=== PATIENT | female | born 1985 | race Hispanic/Latino ===

== ENCOUNTER 2021-07-30 03:16 | Emergency (ER) | payer SELFPAY ==
[2021-07-30] MEDS ORDERED: ZIPRASIDONE MESYLATE 20 MG VIAL IM ONE (03:41)
--- NOTE | 2021-07-30 03:41 | Emergency Department Report ---
ED Psych HPI - General Chief Complaint: Psych Stated Complaint: HEARING VOICES/MH EVAL Time Seen by Provider: 07/30/21 03:31 Source: patient, family Mode of arrival: Ambulatory - History of Present Illness Initial Comments: Patient is 35 years old female, unknown past psychiatric history. Patient brought to the emergency room by caregiver for mental health evaluation. Patient found to be in acute psychosis. Patient with auditory hallucination and speaking to herself in a very loud tone. She stated that the voices telling her that something bad is going to happen to her. She stated that she sees him sometimes. She denied any suicidal homicidal ideation. MD Complaint: altered mental status Associated Psychiatric Symptoms: racing thoughts, auditory hallucinations, visual hallucinations - Related Data Home Medications Medication Instructions Recorded Confirmed Last Taken Trileptal 150 mg PO BID 07/30/21 07/30/21 Unknown Zyprexa 10 mg PO DAILY 07/30/21 07/30/21 Unknown Allergies Allergy/AdvReac Type Severity Reaction Status Date / Time No Known Allergies Allergy Verified 07/30/21 03:24 ED Review of Systems ROS: Stated complaint: HEARING VOICES/MH EVAL Other details as noted in HPI Comment: All other systems reviewed and negative Constitutional: denies: chills, fever Respiratory: denies: cough, shortness of breath, SOB with exertion Cardiovascular: denies: chest pain, palpitations Gastrointestinal: denies: abdominal pain, nausea, vomiting Neurological: denies: headache, weakness, numbness, paresthesias, confusion, abnormal gait Psychiatric: auditory hallucinations, visual hallucinations. denies: homicidal thoughts, suicidal thoughts ED Past Medical Hx - Past Medical History Previous Medical History?: Yes Hx Psychiatric Treatment: Yes - Surgical History Past Surgical History?: No - Medications Home Medications: Home Medications Medication Instructions Recorded Confirmed Last Taken Type Trileptal 150 mg PO BID 07/30/21 07/30/21 Unknown History Zyprexa 10 mg PO DAILY 07/30/21 07/30/21 Unknown History ED Physical Exam - General Limitations: Altered Mental Status General appearance: alert, anxious, other (Agitated, manic) - Head Head exam: Present: atraumatic, normocephalic, normal inspection - Eye Eye exam: Present: normal appearance - ENT ENT exam: Present: normal exam, normal orophraynx, mucous membranes moist - Neck Neck exam: Present: normal inspection, full ROM. Absent: tenderness, meningismus - Respiratory Respiratory exam: Present: normal lung sounds bilaterally - Cardiovascular Cardiovascular Exam: Present: regular rate, normal rhythm, normal heart sounds - GI/Abdominal GI/Abdominal exam: Present: soft, normal bowel sounds. Absent: distended, tenderness, guarding, rebound, rigid, mass, bruit, pulsatile mass, hernia - Extremities Exam Extremities exam: Present: normal inspection, full ROM, normal capillary refill. Absent: tenderness - Back Exam Back exam: Present: normal inspection, full ROM. Absent: CVA tenderness (R), CVA tenderness (L) - Neurological Exam Neurological exam: Present: alert, oriented X3, CN II-XII intact - Psychiatric Psychiatric exam: Present: agitated, manic. Absent: homicidal ideation, suicidal ideation - Skin Skin exam: Present: warm, intact, normal color ED Course Vital Signs 07/30/21 07/30/21 07/30/21 03:24 03:31 11:10 Temperature 99.3 F 98.6 F Pulse Rate 99 H 84 Respiratory 18 17 Rate Blood Pressure 141/79 136/88 [Right] O2 Sat by Pulse 98 100 98 Oximetry 07/30/21 07/31/21 07/31/21 20:05 01:55 08:46 Temperature 98.7 F 99.2 F 97.2 F L Pulse Rate 85 84 92 H Respiratory 18 18 18 Rate Blood Pressure 134/83 129/83 100/61 [Right] O2 Sat by Pulse 98 98 97 Oximetry ED Medical Decision Making - Lab Data Result diagrams: 07/30/21 14:24 07/30/21 14:24 Critical care attestation.: If time is entered above; I have spent that time in minutes in the direct care of this critically ill patient, excluding procedure time. ED Disposition Clinical Impression: Acute psychosis Disposition: [address] [place] [address] Is pt being admited?: No Condition: Stable Referrals: CATALINA CARVER MD [Primary Care Provider] - 3-5 Days
[2021-07-30 04:23] LABS: Basophils % (Auto) 0.1 % (0.0-1.8); Hematocrit 38.9 % (30.3-42.9); Hemoglobin 12.9 gm/dl (10.1-14.3); Lymphocytes # (Auto) 1.8 K/mm3 (1.2-5.4); Mean Corpuscular HGB Conc 33 % (30-34); Mean Corpuscular Volume 88 fl (79-97); Monocytes # (Auto) 0.7 K/mm3 (0.0-0.8); Monocytes % (Auto) 6.2 % (0.0-7.3); Platelet Count 274 K/mm3 (140-440); Red Blood Count 4.41 M/mm3 (3.65-5.03); Red Cell Distribution Width 13.2 % (13.2-15.2)
[2021-07-30 04:39] LABS: Blood Urea Nitrogen 5 mg/dL (7-17); Calcium 9.4 mg/dL (8.4-10.2); Hemolysis Index 13
[2021-07-30 04:43] LABS: Alanine Aminotransferase 20 units/L (7-56); Albumin 4.4 g/dL (3.9-5)
[2021-07-30 04:50] LABS: BUN/Creatinine Ratio 8; Bilirubin,Direct < 0.2 mg/dL (0-0.2)
[2021-07-30] MEDS ORDERED: POTASSIUM CHLORIDE ER 20 MEQ TAB PO ONE (07:36)
--- NOTE | 2021-07-30 10:58 | Consultation ---
History of Present Illness - Reason for Consult Consult date: 07/30/21 Reason for consult: psychosis - History of Present Psychiatric Illness The patient was seen today. She was brought by her caregiver for hallucinations. During the evaluation, the patient appears very anxious. She is bouncing and her face looks tense. She is responding to internal stimuli. She says she came to the hospital for "talking to myself and feeling nervous." She says "I'm better now." When asking the patient if she was still hearing voices, she says "yes, they are telling me something's bad is going to happen." She denies SI/HI. She denies illicit drug use, alcohol or nicotine. The patient says she takes Trileptal and has been off. She did not remember dose or what diagnoses she was given. PAST PSYCHIATRIC HISTORY Diagnoses: unsure of dx Suicide attempts or Self-harm behavior: yes Prior psychiatric hospitalizations: yes Substance Abuse history: Denies Previous psychiatric medications tried: Trileptal Outpatient treatment: Denies PAST MEDICAL HISTORY: None reported Family Psychiatric History: None reported or documented SOCIAL HISTORY Marital Status: Living Arrangements: Sober living Employment Status: Employed Access to guns/weapons: None reported Education: History of Abuse: None reported Legal History: Yes imprisonment REVIEW OF SYSTEMS Constitutional: Negative for weight loss ENT: Negative for stridor Respiratory: Negative for cough or hemoptysis All other systems reviewed and are negative MENTAL STATUS EXAMINATION General Appearance and Behavior: Age appropriate, good hygiene, wearing appropriate clothes, bouncing, appears anxious Cooperation: Participating/engaged Psychomotor Behavior: unremarkable and within normal limits Mood: better Affect and affective range: congruent with mood Thought Process: circumstantial Thought Content: Hallucinations Speech: Normal volume, Regular rate and rhythm. Intellectual Functioning: Average Suicidal Ideation: Denies Homicidal Ideation: Denies Hallucinations: auditory Delusions: None elicited Impulse Control: Limited Insight and Judgment: limited insight and poor judgment Memory: limited Attention: Normal Orientation: Alert, oriented. Assessment and Plan (1) Bipolar Disorder RECOMMENDATIONS 1013 Risperidone 0.5mg po BID Trileptal 150mg po BID Vistaril 50mg po BID Risks, benefits and alternatives of medications discussed with the patient, questions answered and consent obtained from patient. PSYCHOTHERAPY: Supportive psychotherapy provided MEDICAL: Per primary team DELIRIUM PRECAUTIONS: Please re-orient patient frequently, keep lights on during the day, and minimize benzodiazepines and opiates as these medications could worsen patient's confusion. [employer]N PRESS OPERATOR: per primary DISPOSITION: recommend acute inpatient psychiatric hospitalization at this time. FOLLOW-UP: Will follow Thank you for the consult. Please contact with any questions and/or concerns. Case staffed with Dr. Luis Medications and Allergies Allergies Allergy/AdvReac Type Severity Reaction Status Date / Time No Known Allergies Allergy Verified 07/30/21 03:24 Mental Status Exam - Vital signs Last Vital Signs Temp 99.3 F 07/30/21 03:24 Pulse 99 H 07/30/21 03:24 Resp 18 07/30/21 03:24 BP 141/79 07/30/21 03:24 Pulse Ox 100 07/30/21 03:31 Results Result Diagrams: 07/30/21 03:53 07/30/21 03:53 Abnormal lab results 07/30/21 07/30/21 07/30/21 Range/Units 03:53 03:53 03:53 WBC 11.4 H (4.5-11.0) K/mm3 Seg Neutrophils % 77.7 H (40.0-70.0) % Seg Neutrophils # 8.9 H (1.8-7.7) K/mm3 Potassium 3.4 L (3.6-5.0) mmol/L Carbon Dioxide 20 L (22-30) mmol/L BUN 5 L (7-17) mg/dL Glucose 118 H (65-100) mg/dL Salicylates < 0.3 L (2.8-20.0) mg/dL Acetaminophen (10.0-30.0) ug/mL 07/30/21 Range/Units 03:53 WBC (4.5-11.0) K/mm3 Seg Neutrophils % (40.0-70.0) % Seg Neutrophils # (1.8-7.7) K/mm3 Potassium (3.6-5.0) mmol/L Carbon Dioxide (22-30) mmol/L BUN (7-17) mg/dL Glucose (65-100) mg/dL Salicylates (2.8-20.0) mg/dL Acetaminophen 5.0 L (10.0-30.0) ug/mL All other labs normal.
[2021-07-30] MEDS ORDERED: OXcarbazepine 300 MG TAB PO SCH (11:00)
[2021-07-30] MEDS: risperiDONE 0.25 MG TAB PO SCH (11:17)
[2021-07-30 11:18] LABS: Bacteria,Urine 1+ /HPF (Negative); Bilirubin,Urine NEG (Negative); Blood,Urine NEG (Negative); Color,Urine Yellow (Yellow); Mucus,Urine 1+ /HPF; Protein,Urine <15 mg/dL mg/dL (Negative); RBC,Urine < 1.0 /HPF (0.0-6.0); Urobilinogen,Urine < 2.0 mg/dL (<2.0)
[2021-07-30 11:38] LABS: Amphetamine Screen,Urine Negative; Benzodiazepines Screen,Urine Negative; Cannabinoid Screen,Urine Negative; Cocaine Screen,Urine Negative; Methadone Screen,Urine Negative; Opiate Screen,Urine Negative
--- NOTE | 2021-07-30 11:41 | Event Note ---
Date: 07/30/21 The patient was evaluated in the emergency department for symptoms described in the history of present illness. He/she was evaluated in the context of the global COVID-19 pandemic, which necessitated consideration that the patient might be at risk for infection with the virus that causes COVID-19. Institutional protocols and algorithms that pertain to the evaluation of patients at risk for COVID-19 are in a state of rapid change based on information released by regulatory bodies including the CDC and federal and state organizations. These policies and algorithms were followed during the patient's care in the emergency department. Please note that these policies, procedures and recommendations changed on a rapid basis. Laboratory studies, vital signs, nursing documentation, ER documentation, and psychiatric documentation are reviewed and appreciated. Nursing team endorses that the patient is psychotic, and anxious. The psychiatric team have recommended a 1013 for disorganization and acute psychosis. I concur with the recommendation. The patient is awake and ate breakfast and went to the bathroom this morning The patient was deemed medically suitable for psychiatric disposition and placement during her initial ER evaluation. The patient continues to remain medically suitable for psychiatric placement and disposition. She is currently pending psychiatric placement. Have ordered and filled out/signed 1013. Vital Signs 07/30/21 07/30/21 07/30/21 03:24 03:31 11:10 Temperature 99.3 F 98.6 F Pulse Rate 99 H 84 Respiratory 18 17 Rate Blood Pressure 141/79 136/88 [Right] O2 Sat by Pulse 98 100 98 Oximetry Lab Results 07/30/21 07/30/21 07/30/21 Range/Units 03:31 03:31 03:53 WBC 11.4 H (4.5-11.0) K/mm3 RBC 4.41 (3.65-5.03) M/mm3 Hgb 12.9 (10.1-14.3) gm/dl Hct 38.9 (30.3-42.9) % MCV 88 (79-97) fl MCH 29 (28-32) pg MCHC 33 (30-34) % RDW 13.2 (13.2-15.2) % Plt Count 274 (140-440) K/mm3 Lymph % (Auto) 16.0 (13.4-35.0) % [place] % (Auto) 6.2 (0.0-7.3) % Eos % (Auto) 0.0 (0.0-4.3) % Baso % (Auto) 0.1 (0.0-1.8) % Lymph # (Auto) 1.8 (1.2-5.4) K/mm3 [place] # (Auto) 0.7 (0.0-0.8) K/mm3 Eos # (Auto) 0.0 (0.0-0.4) K/mm3 Baso # (Auto) 0.0 (0.0-0.1) K/mm3 Seg Neutrophils % 77.7 H (40.0-70.0) % Seg Neutrophils # 8.9 H (1.8-7.7) K/mm3 Sodium (137-145) mmol/L Potassium (3.6-5.0) mmol/L Chloride (98-107) mmol/L Carbon Dioxide (22-30) mmol/L Anion Gap mmol/L BUN (7-17) mg/dL Creatinine (0.6-1.2) mg/dL Estimated GFR ml/min BUN/Creatinine Ratio % Glucose (65-100) mg/dL Calcium (8.4-10.2) mg/dL Total Bilirubin (0.1-1.2) mg/dL Direct Bilirubin (0-0.2) mg/dL Indirect Bilirubin mg/dL AST (5-40) units/L ALT (7-56) units/L Alkaline Phosphatase (35-129) units/L Total Protein (6.3-8.2) g/dL Albumin (3.9-5) g/dL Albumin/Globulin Ratio % HCG, Qual (Negative) Urine Color Yellow (Yellow) Urine Turbidity Clear (Clear) Urine pH 5.0 (5.0-7.0) Ur Specific [place] 1.019 (1.003-1.030) Urine Protein <15 mg/dl (Negative) mg/dL Urine Glucose (UA) Neg (Negative) mg/dL Urine Ketones 80 (Negative) mg/dL Urine Blood Neg (Negative) Urine Nitrite Neg (Negative) Urine Bilirubin Neg (Negative) Urine Urobilinogen < 2.0 (<2.0) mg/dL Ur Leukocyte Esterase Neg (Negative) Urine WBC (Auto) 2.0 (0.0-6.0) /HPF Urine RBC (Auto) < 1.0 (0.0-6.0) /HPF U Epithel Cells (Auto) 1.0 (0-13.0) /HPF Urine Bacteria (Auto) 1+ (Negative) /HPF Urine Mucus 1+ /HPF Salicylates (2.8-20.0) mg/dL Urine Opiates Screen Negative Urine Methadone Screen Negative Acetaminophen (10.0-30.0) ug/mL Ur Barbiturates Screen Negative Ur Phencyclidine Scrn Negative Ur Amphetamines Screen Negative U Benzodiazepines Scrn Negative Urine Cocaine Screen Negative U Marijuana (THC) Screen Negative Plasma/Serum Alcohol (0-0.07) % SARS-CoV-2 (PCR) (Negative) 07/30/21 07/30/21 07/30/21 Range/Units 03:53 03:53 03:53 WBC (4.5-11.0) K/mm3 RBC (3.65-5.03) M/mm3 Hgb (10.1-14.3) gm/dl Hct (30.3-42.9) % MCV (79-97) fl MCH (28-32) pg MCHC (30-34) % RDW (13.2-15.2) % Plt Count (140-440) K/mm3 Lymph % (Auto) (13.4-35.0) % [place] % (Auto) (0.0-7.3) % Eos % (Auto) (0.0-4.3) % Baso % (Auto) (0.0-1.8) % Lymph # (Auto) (1.2-5.4) K/mm3 [place] # (Auto) (0.0-0.8) K/mm3 Eos # (Auto) (0.0-0.4) K/mm3 Baso # (Auto) (0.0-0.1) K/mm3 Seg Neutrophils % (40.0-70.0) % Seg Neutrophils # (1.8-7.7) K/mm3 Sodium 142 (137-145) mmol/L Potassium 3.4 L (3.6-5.0) mmol/L Chloride 106.1 (98-107) mmol/L Carbon Dioxide 20 L (22-30) mmol/L Anion Gap 19 mmol/L BUN 5 L (7-17) mg/dL Creatinine 0.6 (0.6-1.2) mg/dL Estimated GFR > 60 ml/min BUN/Creatinine Ratio 8 % Glucose 118 H (65-100) mg/dL Calcium 9.4 (8.4-10.2) mg/dL Total Bilirubin (0.1-1.2) mg/dL Direct Bilirubin (0-0.2) mg/dL Indirect Bilirubin mg/dL AST (5-40) units/L ALT (7-56) units/L Alkaline Phosphatase (35-129) units/L Total Protein (6.3-8.2) g/dL Albumin (3.9-5) g/dL Albumin/Globulin Ratio % HCG, Qual (Negative) Urine Color (Yellow) Urine Turbidity (Clear) Urine pH (5.0-7.0) Ur Specific [place] (1.003-1.030) Urine Protein (Negative) mg/dL Urine Glucose (UA) (Negative) mg/dL Urine Ketones (Negative) mg/dL Urine Blood (Negative) Urine Nitrite (Negative) Urine Bilirubin (Negative) Urine Urobilinogen (<2.0) mg/dL Ur Leukocyte Esterase (Negative) Urine WBC (Auto) (0.0-6.0) /HPF Urine RBC (Auto) (0.0-6.0) /HPF U Epithel Cells (Auto) (0-13.0) /HPF Urine Bacteria (Auto) (Negative) /HPF Urine Mucus /HPF Salicylates < 0.3 L (2.8-20.0) mg/dL Urine Opiates Screen Urine Methadone Screen Acetaminophen 5.0 L (10.0-30.0) ug/mL Ur Barbiturates Screen Ur Phencyclidine Scrn Ur Amphetamines Screen U Benzodiazepines Scrn Urine Cocaine Screen U Marijuana (THC) Screen Plasma/Serum Alcohol (0-0.07) % SARS-CoV-2 (PCR) (Negative) 07/30/21 07/30/21 07/30/21 Range/Units 03:53 03:53 03:53 WBC (4.5-11.0) K/mm3 RBC (3.65-5.03) M/mm3 Hgb (10.1-14.3) gm/dl Hct (30.3-42.9) % MCV (79-97) fl MCH (28-32) pg MCHC (30-34) % RDW (13.2-15.2) % Plt Count (140-440) K/mm3 Lymph % (Auto) (13.4-35.0) % [place] % (Auto) (0.0-7.3) % Eos % (Auto) (0.0-4.3) % Baso % (Auto) (0.0-1.8) % Lymph # (Auto) (1.2-5.4) K/mm3 [place] # (Auto) (0.0-0.8) K/mm3 Eos # (Auto) (0.0-0.4) K/mm3 Baso # (Auto) (0.0-0.1) K/mm3 Seg Neutrophils % (40.0-70.0) % Seg Neutrophils # (1.8-7.7) K/mm3 Sodium (137-145) mmol/L Potassium (3.6-5.0) mmol/L Chloride (98-107) mmol/L Carbon Dioxide (22-30) mmol/L Anion Gap mmol/L BUN (7-17) mg/dL Creatinine (0.6-1.2) mg/dL Estimated GFR ml/min BUN/Creatinine Ratio % Glucose (65-100) mg/dL Calcium (8.4-10.2) mg/dL Total Bilirubin 0.40 (0.1-1.2) mg/dL Direct Bilirubin < 0.2 (0-0.2) mg/dL Indirect Bilirubin 0.2 mg/dL AST 13 (5-40) units/L ALT 20 (7-56) units/L Alkaline Phosphatase 86 (35-129) units/L Total Protein 7.0 (6.3-8.2) g/dL Albumin 4.4 (3.9-5) g/dL Albumin/Globulin Ratio 1.7 % HCG, Qual Negative (Negative) Urine Color (Yellow) Urine Turbidity (Clear) Urine pH (5.0-7.0) Ur Specific [place] (1.003-1.030) Urine Protein (Negative) mg/dL Urine Glucose (UA) (Negative) mg/dL Urine Ketones (Negative) mg/dL Urine Blood (Negative) Urine Nitrite (Negative) Urine Bilirubin (Negative) Urine Urobilinogen (<2.0) mg/dL Ur Leukocyte Esterase (Negative) Urine WBC (Auto) (0.0-6.0) /HPF Urine RBC (Auto) (0.0-6.0) /HPF U Epithel Cells (Auto) (0-13.0) /HPF Urine Bacteria (Auto) (Negative) /HPF Urine Mucus /HPF Salicylates (2.8-20.0) mg/dL Urine Opiates Screen Urine Methadone Screen Acetaminophen (10.0-30.0) ug/mL Ur Barbiturates Screen Ur Phencyclidine Scrn Ur Amphetamines Screen U Benzodiazepines Scrn Urine Cocaine Screen U Marijuana (THC) Screen Plasma/Serum Alcohol < 0.01 (0-0.07) % SARS-CoV-2 (PCR) (Negative) 07/30/21 Range/Units 09:20 WBC (4.5-11.0) K/mm3 RBC (3.65-5.03) M/mm3 Hgb (10.1-14.3) gm/dl Hct (30.3-42.9) % MCV (79-97) fl MCH (28-32) pg MCHC (30-34) % RDW (13.2-15.2) % Plt Count (140-440) K/mm3 Lymph % (Auto) (13.4-35.0) % [place] % (Auto) (0.0-7.3) % Eos % (Auto) (0.0-4.3) % Baso % (Auto) (0.0-1.8) % Lymph # (Auto) (1.2-5.4) K/mm3 [place] # (Auto) (0.0-0.8) K/mm3 Eos # (Auto) (0.0-0.4) K/mm3 Baso # (Auto) (0.0-0.1) K/mm3 Seg Neutrophils % (40.0-70.0) % Seg Neutrophils # (1.8-7.7) K/mm3 Sodium (137-145) mmol/L Potassium (3.6-5.0) mmol/L Chloride (98-107) mmol/L Carbon Dioxide (22-30) mmol/L Anion Gap mmol/L BUN (7-17) mg/dL Creatinine (0.6-1.2) mg/dL Estimated GFR ml/min BUN/Creatinine Ratio % Glucose (65-100) mg/dL Calcium (8.4-10.2) mg/dL Total Bilirubin (0.1-1.2) mg/dL Direct Bilirubin (0-0.2) mg/dL Indirect Bilirubin mg/dL AST (5-40) units/L ALT (7-56) units/L Alkaline Phosphatase (35-129) units/L Total Protein (6.3-8.2) g/dL Albumin (3.9-5) g/dL Albumin/Globulin Ratio % HCG, Qual (Negative) Urine Color (Yellow) Urine Turbidity (Clear) Urine pH (5.0-7.0) Ur Specific [place] (1.003-1.030) Urine Protein (Negative) mg/dL Urine Glucose (UA) (Negative) mg/dL Urine Ketones (Negative) mg/dL Urine Blood (Negative) Urine Nitrite (Negative) Urine Bilirubin (Negative) Urine Urobilinogen (<2.0) mg/dL Ur Leukocyte Esterase (Negative) Urine WBC (Auto) (0.0-6.0) /HPF Urine RBC (Auto) (0.0-6.0) /HPF U Epithel Cells (Auto) (0-13.0) /HPF Urine Bacteria (Auto) (Negative) /HPF Urine Mucus /HPF Salicylates (2.8-20.0) mg/dL Urine Opiates Screen Urine Methadone Screen Acetaminophen (10.0-30.0) ug/mL Ur Barbiturates Screen Ur Phencyclidine Scrn Ur Amphetamines Screen U Benzodiazepines Scrn Urine Cocaine Screen U Marijuana (THC) Screen Plasma/Serum Alcohol (0-0.07) % SARS-CoV-2 (PCR) Negative (Negative)
[2021-07-30] MEDS: OXcarbazepine 150 MG TAB PO SCH (13:12)
[2021-07-30 14:51] LABS: Basophils % (Auto) 0.2 % (0.0-1.8); Hematocrit 37.5 % (30.3-42.9); Hemoglobin 12.9 gm/dl (10.1-14.3); Lymphocytes # (Auto) 2.5 K/mm3 (1.2-5.4); Lymphocytes % (Auto) 26.9 % (13.4-35.0); Mean Corpuscular HGB Conc 34 % (30-34); Mean Corpuscular Volume 88 fl (79-97); Monocytes # (Auto) 0.6 K/mm3 (0.0-0.8); Monocytes % (Auto) 6.9 % (0.0-7.3); Platelet Count 261 K/mm3 (140-440); Red Blood Count 4.25 M/mm3 (3.65-5.03); Red Cell Distribution Width 13.3 % (13.2-15.2)
[2021-07-30 15:05] LABS: Alanine Aminotransferase 19 units/L (7-56); Albumin 4.5 g/dL (3.9-5); Blood Urea Nitrogen 7 mg/dL (7-17); Calcium 9.3 mg/dL (8.4-10.2); Hemolysis Index 3
[2021-07-30 15:06] LABS: BUN/Creatinine Ratio 14
[2021-07-31] MEDS: risperiDONE 0.25 MG TAB PO SCH ×2 (00:04→10:28)
[2021-07-31] MEDS: OXcarbazepine 150 MG TAB PO SCH ×2 (00:04→10:27)
[2021-07-31] MEDS: POTASSIUM CHLORIDE ER 20 MEQ TAB PO SCH ×2 (00:04→10:30)
[2021-07-31 08:47] VITALS: BP 100/61
--- NOTE | 2021-07-31 11:18 | Emergency Department Report ---
Blank Doc - Documentation Documentation: Patient has no complaints and there were no events of the night. We are await ing transfer later today to [facility].
== END 2021-07-31 16:09 ==
LOC: ED 03:16
DX: F23 Brief psychotic disorder (principal); Z20.822 Contact with and (suspected) exposure to COVID-19; Z79.899 Other long term (current) drug therapy
CPT/HCPCS: 36415; 80048; 80053; 80076; 80307; 81001; 84703; 85025; 96372; 99285; J3486; Q0177; U0003; 80320; G0480